=== PATIENT | male | born 1960 | race Caucasian/White ===

== ENCOUNTER 2017-01-08 14:40 | Outpatient (RCR) | payer BC ==
[2015-06-29 13:18] VITALS: BP 107/67
[~2017-01-08 14:40] MED LIST: BACTROBAN21 NS; DIOVAN 80MG80 MG PO; FLONASE NASAL S16 GM NS; GABAPENTIN600 MG PO; HUMALOG100 U/ML SQ; LANTUS SOLOS100 U/M1 SC; LISINOPRIL10 MG PO; MEDI-FIRST ASP325 MG PO; NEURONTIN600 MG/TAB PO; NITROGLYCERIN0.4 MG SL; NORVASC 5MG5 MG/TAB PO; PLAVIX 75MG TAB75 MG PO; TESSALON PERLE200 MG PO; TOPROL XL 25MG25 MG PO; ZOCOR20 MG PO
== END 2017-04-08 | disposition home or self-care (01) ==
LOC: CARDREHAB
DX: Z48.812 Encounter for surgical aftercare following surgery on the circulatory system (principal); Z95.5 Presence of coronary angioplasty implant and graft; I25.10 Atherosclerotic heart disease of native coronary artery without angina pectoris

== ENCOUNTER 2017-04-09 08:00 | Outpatient (RCR) | payer BC ==
[2015-06-29 13:18] VITALS: BP 107/67
== END 2017-06-26 15:53 | disposition home or self-care (01) ==
LOC: CARDREHAB 08:00
DX: Z48.812 Encounter for surgical aftercare following surgery on the circulatory system (principal); Z95.5 Presence of coronary angioplasty implant and graft

== ENCOUNTER 2018-11-05 13:21 | Outpatient (RCR) | payer BC ==
[2015-06-29 13:18] VITALS: BP 107/67
== END 2019-02-03 | disposition home or self-care (01) ==
LOC: CARDREHAB
DX: Z48.812 Encounter for surgical aftercare following surgery on the circulatory system (principal); Z95.5 Presence of coronary angioplasty implant and graft

== ENCOUNTER 2019-01-21 15:12 | Emergency (ER) | payer BC ==
[2019-01-21 15:27] VITALS: BP 161/76
== END 2019-01-21 15:20 | disposition left against medical advice (07) ==
LOC: ED 15:12
DX: I10 Essential (primary) hypertension (principal)

== ENCOUNTER → 2019-02-11 | Outpatient (CLI) | payer BC ==
[2019-01-21 15:27] VITALS: BP 161/76
[2019-02-11 11:08] LABS: EOS # 0.1 (0.04-0.40); EOS % 1.9 % (0.0-4.0); HEMATOCRIT 33.7 % (42.0-52.0); HEMOGLOBIN 11.4 g/dL (13.5-18.0); LYMPH# 0.9 (1.50-4.00); MEAN CELL VOLUME 86 fl (78-100); MEAN CORPUSCULAR HEMOGLOBIN 29 pg (27-31); MEAN CORPUSCULAR HGB CONC 34 g/dL (33-37); MEAN PLATELET VOLUME 9.1 fl (7.4-10.4); MONO # 0.5 (0.20-0.80); NEU # 5.1 (1.40-6.50); PLATELET COUNT 227 K/mm3 (130-400); RED BLOOD COUNT 3.92 M/mm3 (4.20-5.60); RED CELL DISTRIBUTION WIDTH 16.2 % (11.5-14.5); WHITE BLOOD COUNT 6.7 K/mm3 (4.8-10.8)
[2019-02-11 11:29] LABS: CALCIUM 9.2 mg/dL (8.4-10.2); POTASSIUM 4.4 mmol/L (3.6-5.0); TOTAL PROTEIN 6.9 g/dL (6.3-8.2)
[2019-02-11 11:39] LABS: PARTIAL THROMBOPLASTIN TIME 25.5 SECONDS (21.0-32.0); PROTHROMBIN TIME 10.1 SECONDS (9.0-12.0)
[2019-02-11 12:00] LABS: D-DIMER 1.51 mg/L FEU (0.15-0.50)
== END ==
LOC: LAB 10:52
PROVIDERS: Family Medicine
DX: T14.8XXA Other injury of unspecified body region, initial encounter (principal); R07.9 Chest pain, unspecified